=== PATIENT | female | born 1975 | race Caucasian/White ===

== ENCOUNTER 2018-03-13 09:58 | Emergency (ER) | payer MEDICAID ==
[~2018-03-13] VITALS: Ht 144.8 cm; Wt 67.1 kg
--- NOTE | 2018-03-13 10:03 | NUR ---
AAOX3, BIBRA 102 FROM HOME C/O SOB AND CHEST DISCOMFORT SINCE THIS AM. PATIENT STATES THAT SHE ARRIVED YESTERAY (03/12/18) FROM [facility]. SKIN IS WARM AND DRY. PLACED ON THE MONITOR. DR AG AT FOR EVAL.
[2018-03-13] MEDS ORDERED: LORAZEPAM INJ 2 MG/ML VIAL ONE (10:14)
[2018-03-13] MEDS ORDERED: ASPIRIN 325 MG TABLET ONE (10:15)
[2018-03-13] MEDS: ASPIRIN 325 MG TABLET PO ONE (10:19)
[2018-03-13] MEDS: LORAZEPAM INJ 2 MG/ML VIAL IV ONE (10:19)
[2018-03-13 10:30] LABS: BASOPHILS # (AUTO) 0.1 /CMM (0.0-0.2); BASOPHILS % (AUTO) 0.9 % (0.0-2.0); EOSINOPHILS % (AUTO) 2.3 % (0.0-6.0); HEMATOCRIT 41 % (33-45); HEMOGLOBIN 13.7 g/dL (11.5-14.8); LYMPHOCYTES # (AUTO) 2.6 /CMM (0.8-4.8); LYMPHOCYTES % (AUTO) 36.9 % (20.0-44.0); MEAN CORPUSCULAR HEMOGLOBIN 30 PG (26.0-33.0); MEAN CORPUSCULAR HGB CONC 34 g/dl (31.0-36.0); MEAN CORPUSCULAR VOLUME 90 fL (82-100); MONOCYTES # (AUTO) 0.5 /CMM (0.1-1.30); MONOCYTES % (AUTO) 6.8 % (2.0-12.0); NEUTROPHILS # (AUTO) 3.8 /CMM (1.8-8.9); NEUTROPHILS % (AUTO) 53.1 % (43.0-81.0); PLATELET COUNT (AUTO) 342 /CMM (150-450); RDW COEFFICIENT OF VARIATION 13.2 (11.5-15.0); RED BLOOD CELL COUNT(AUTO) 4.54 MIL/uL (4.0-5.2); WHITE BLOOD COUNT (AUTO) 7.2 K/uL (4.3-11.0)
[2018-03-13 10:39] LABS: CALCIUM, SERUM 9.7 mg/dL (8.5-10.1); CARBON DIOXIDE 19 mmol/L (21-32); CHLORIDE 106 mmol/L (98-107); CREATININE 0.8 mg/dL (0.6-1.3); GLUCOSE 128 mg/dL (74-106); POTASSIUM 4.2 mmol/L (3.5-5.1); SODIUM SERUM 136 mmol/L (136-145); UREA NITROGEN, BLOOD 11 mg/dL (7-18)
[2018-03-13 10:46] LABS: INR 0.89 (0.85-1.15)
[2018-03-13 10:47] LABS: TROPONIN I < 0.017 ng/mL (0.00-0.056)
[2018-03-13 10:53] LABS: B-TYPE NATRIURETIC PEPTIDE 9 PG/ML (0-125)
--- NOTE | 2018-03-13 11:06 | NUR ---
Jada molina in [facility] - 03/13/18 at 1110 by SHADE [id number]
[2018-03-13 11:23] LABS: D-DIMER 0.3 mg/L(FEU (0.17-0.50)
--- NOTE | 2018-03-13 11:35 | NUR ---
DR AG AT FOR AN UPDATE AND RE-EVAL.
--- NOTE | 2018-03-13 11:50 | NUR ---
IV removed. Catheter intact and site benign. Pressure and 4x4 applied to site. No bleeding noted.Patient discharged to home in stable condition. Written and verbal after care instructions given. Patient verbalizes understanding of instruction.
[2018-03-13 11:51] VITALS: BP 135/74
== END 2018-03-13 11:52 | disposition home or self-care (01) ==
LOC: ER 09:58
DX: F41.9 Anxiety disorder, unspecified (principal); R07.89 Other chest pain; R06.02 Shortness of breath; E78.00 Pure hypercholesterolemia, unspecified
CPT/HCPCS: 36415; 71045-TC; 80048-TC; 83880; 84484-TC; 85025-TC; 85378-TC; 85730-TC; A4606; J2060; Z7610

== ENCOUNTER 2018-03-14 19:00 | Emergency (ER) | payer MEDICAID ==
[~2018-03-14] VITALS: Ht 175.3 cm; Wt 74.8 kg
--- NOTE | 2018-03-14 19:15 | NUR ---
TO BED 13 BIB PARAMEDICS C/O MIDSTERNAL CHEST PAIN WITH SOB X2 DAYS. SKIN WARM, NONDIAPHORETIC. PT WAS SEEN HERE YESTERDAY AND EVALUATED WITH NEGATIVE RESULTS. PT AAOX4 NO ACUTE DISTRESS NOTED, RESP EVEN AND UNLABORED. PLACE PT ON CARDIAC MONITORING, CONTINUOUS POX, O2@2L/NC. ER SOCIAL SERVICES COORDINATOR MARSII AT BEDSIDE TO EVAL PT WITH ORDERS RECEIVED. WILL CARRY OUT ORDERS. SL 20G TO LAC CAFETERIA TABLE ATTENDANT.
--- NOTE | 2018-03-14 19:20 | NUR ---
BLOOD DRAWN BY ELECTROCARDIOGRAPH TECHNICIAN.
[2018-03-14] MEDS ORDERED: MORPHINE SULFATE INJ 4 MG/ML DISP.SYRIN ONE (19:28)
[2018-03-14] MEDS ORDERED: ONDANSETRON HCL/PF 4 MG/2 ML VIAL ONE (19:28)
[2018-03-14 19:29] LABS: BASOPHILS % (AUTO) 0.3 % (0.0-2.0); HEMATOCRIT 39 % (33-45); HEMOGLOBIN 13.1 g/dL (11.5-14.8); LYMPHOCYTES # (AUTO) 2.4 /CMM (0.8-4.8); LYMPHOCYTES % (AUTO) 33.5 % (20.0-44.0); MEAN CORPUSCULAR HEMOGLOBIN 29 PG (26.0-33.0); MEAN CORPUSCULAR HGB CONC 34 g/dl (31.0-36.0); MEAN CORPUSCULAR VOLUME 87 fL (82-100); MONOCYTES # (AUTO) 0.6 /CMM (0.1-1.30); MONOCYTES % (AUTO) 8.7 % (2.0-12.0); NEUTROPHILS # (AUTO) 3.8 /CMM (1.8-8.9); NEUTROPHILS % (AUTO) 53.5 % (43.0-81.0); PLATELET COUNT (AUTO) 360 /CMM (150-450); RDW COEFFICIENT OF VARIATION 12.2 (11.5-15.0); RED BLOOD CELL COUNT(AUTO) 4.46 MIL/uL (4.0-5.2); WHITE BLOOD COUNT (AUTO) 7.1 K/uL (4.3-11.0)
[2018-03-14] MEDS ORDERED: NITROGLYCERIN 0.4 MG/TAB BOTTLE ONE (19:29)
[2018-03-14] MEDS ORDERED: NITROGLYCERIN PACKET 1 GM PACKET ONE (19:29)
[2018-03-14] MEDS ORDERED: IV NS 0.9% 1,000 ML BAG IV ONE (19:30)
[2018-03-14] MEDS ORDERED: MORPHINE SULFATE INJ 2 MG/ML DISP.SYRIN IV ONE (19:30)
[2018-03-14] MEDS ORDERED: ONDANSETRON HCL/PF 4 MG/2 ML VIAL IVP ONE (19:30)
[2018-03-14] MEDS ORDERED: NITROGLYCERIN 0.4 MG/TAB BOTTLE SL ONE (19:30)
[2018-03-14] MEDS ORDERED: NITROGLYCERIN PACKET 1 GM PACKET TD ONE (19:30)
[2018-03-14] MEDS ORDERED: ASPIRIN 325 MG TABLET PO ONE (19:30)
[2018-03-14 19:56] LABS: INR 0.92 (0.87-1.13); TROPONIN I < 0.017 ng/mL (0.00-0.056)
[2018-03-14 20:04] LABS: ALANINE AMINOTRANSFERASE 52 U/L (12-78); ALBUMIN 3.8 g/dL (3.4-5.0); ALKALINE PHOSPHATASE 48 U/L (46-116); ASPARTATE AMINOTRANSFERASE 19 U/L (15-37); BILIRUBIN,DIRECT 0.1 mg/dL (0.0-0.2); BILIRUBIN,TOTAL 0.7 mg/dL (0.2-1.0); CALCIUM, SERUM 9.2 mg/dL (8.5-10.1); CARBON DIOXIDE 24 mmol/L (21-32); CHLORIDE 104 mmol/L (98-107); CREATININE 0.6 mg/dL (0.6-1.3); GLUCOSE 109 mg/dL (74-106); POTASSIUM 3.1 mmol/L (3.5-5.1); SODIUM SERUM 139 mmol/L (136-145); TOTAL PROTEIN, SERUM 7.8 g/dL (6.4-8.2); UREA NITROGEN, BLOOD 7 mg/dL (7-18)
[2018-03-14] MEDS ORDERED: ASPIRIN 325 MG TABLET ONE ×2 (20:07→20:34)
--- NOTE | 2018-03-14 20:25 | NUR ---
PT TRANSPORTED TO RADIOLOGY FOR CT PULMONARY ANGIOGRAM.
[2018-03-14] MEDS ORDERED: IOHEXOL-350 100 ML VIAL IV ONE (20:27)
[2018-03-14] MEDS ORDERED: ACETAMINOPHEN ES 500 MG TABLET PO ONE (20:30)
[2018-03-14] MEDS ORDERED: ACETAMINOPHEN ES 500 MG TABLET ONE (20:34)
--- NOTE | 2018-03-14 21:19 | NUR ---
CT RESULT RECEIVED. ER BODY STYLIST AWARE.
--- NOTE | 2018-03-14 23:52 | NUR ---
IV removed. Catheter intact and site benign. Pressure and 4x4 applied to site. No bleeding noted. Patient discharged to home in stable condition. Written and verbal after care instructions given. Patient verbalizes understanding of instruction. ambulatory with a steady gait noted. pt aaox4 no acute distress noted, resp even and unlabored.
[2018-03-14 23:54] VITALS: BP 90/63
== END 2018-03-15 | disposition home or self-care (01) ==
LOC: ER 19:01
DX: R07.89 Other chest pain (principal); R42 Dizziness and giddiness; R06.02 Shortness of breath; R11.0 Nausea; M54.9 Dorsalgia, unspecified; E78.00 Pure hypercholesterolemia, unspecified
CPT/HCPCS: 36415; 71045; 71275; 80048; 80076; 84484 ×2; 85025; 85730; 93005 ×2; 96361; 96374; 99285; A4606; J2405; J7030; Q9967; J2270